=== PATIENT | female | born 1965 | race Two or more races ===

== ENCOUNTER 2017-02-13 07:02 | Day surgery (SDC) | payer OTHER ==
[2017-02-12 15:34] VITALS: BMI 22.2
[~2017-02-13] VITALS: Ht 157.5 cm; Wt 60.0 kg
[2017-02-13 07:57] VITALS: BP 110/66; PULSE 90; RESP 20; Ht 157.5 cm; Wt 60.0 kg
[2017-02-13] MEDS ORDERED: URSO250T10 PO (08:58)
[2017-02-13] MEDS ORDERED: IBUP200C PO (08:58)
[2017-02-13] MEDS ORDERED: SIMV20TA2 PO (08:59)
[2017-02-13] MEDS ORDERED: CHOL4POW3 PO (08:59)
[2017-02-13] MEDS ORDERED: PROPOFOL 20 ML ONE (10:08)
[2017-02-13] MEDS ORDERED: MIDAZOLAM 1 MG/ML 2 ML INJ ONE (10:08)
[2017-02-13] MEDS ORDERED: METOCLOPRAMIDE 10 MG INJ ONE (10:08)
[2017-02-13] MEDS ORDERED: INDOMETHACIN 50 MG SUPP PR ONE ×3 (10:27→10:30)
[2017-02-13] MEDS ORDERED: IOHEXOL 300MG/ML 30 ML BTL ONE (10:30)
[2017-02-13] MEDS ORDERED: FENTAnyl 50 MCG/ML VIAL ONE (10:42)
[2017-02-13] MEDS ORDERED: CEFAZOLIN 1 GM INJ ONE (10:52)
[2017-02-13] MEDS ORDERED: PHENYLephrine (100 MCG/ML) 5ML SYG ONE (10:53)
[2017-02-13] MEDS ORDERED: METOCLOPRAMIDE 10 MG INJ IV PRN (11:00)
[2017-02-13] MEDS ORDERED: MEPERIDINE 25 MG INJ IV PRN (11:00)
[2017-02-13] MEDS ORDERED: HYDROmorphONE (0.2 MG/ML) 10ML SYG IV PRN ×3 (11:00)
[2017-02-13] MEDS ORDERED: DIPHENHYDRAMINE 50 MG INJ IV PRN (11:00)
[2017-02-13] MEDS ORDERED: ONDANSETRON 4 MG INJ IV PRN (11:00)
[2017-02-13] MEDS ORDERED: SUCCINYLCHOLINE CHLORIDE 100 MG/5 ML SYG IV ONE (12:04)
[2017-02-13 12:24] VITALS: BP 119/74; PULSE 91; RESP 18
[2017-02-13 12:25] VITALS: BP 112/70; PULSE 90; RESP 16
[2017-02-13 12:28] VITALS: BP 121/66; PULSE 88; RESP 16
[2017-02-13 12:33] VITALS: BP 114/76; PULSE 82; RESP 20
--- NOTE | 2017-02-13 12:37 | GILP ---
DATE OF PROCEDURE: NAME OF PROCEDURE: ERCP, sphincterotomy, balloon sweep and CBD stent placement. PREOPERATIVE DIAGNOSIS: Patient presenting with a history of abnormal liver functions and abdominal pain. MRCP showed dilatation of the biliary system and at this time the procedure is performed to rule out a distal CBD stricture, CBD stones or neoplasm. POSTOPERATIVE DIAGNOSES: 1. Normal pancreatic duct. 2. Dilated common bile duct. 3. 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 Sphincterotomy was performed, balloon sweep was performed, and a CBD stent was placed. DESCRIPTION OF PROCEDURE: After the informed written consent was obtained, the patient was intubate d by the anesthesiologist, Dr. Solis. When the patient was in the prone position the Olympus v ideo side-viewing duodenoscope was inserted into the oropharynx, then into the esophagus, and then s tomach, and then into the duodenum. The ampulla was located in the normal location, with normal mor phology. Initially the pancreatic duct was cannulated, which appeared normal. Subsequently the com mon bile duct was also cannulated. There seemed to be a stricture in the distal bile duct and at th is time a sphincterotomy was performed. After the sphincterotomy, balloon sweeping was performed. No stones were retrieved. Still appeared to be a distal biliary stricture and at this time a 10 x 7 [place] type of endobiliary prosthesis was inserted into the bile duct, across the ampulla, into the duodenum. At this time the scope was withdrawn and the procedure was terminated. PLAN: Recommend to follow the patient closely. Dictated By: MELISA MANDEL/DECLAN Conf#: [id number] DID#: [id number]
[2017-02-13 13:05] VITALS: BP 126/76; PULSE 77; RESP 16
--- NOTE | 2017-02-13 17:50 | RADRPT ---
PROCEDURE: Intraoperative imaging for ERCP with fluoroscopy. CLINICAL INDICATION: Right upper quadrant pain. Intraoperative. TECHNIQUE: 6 images of the right upper quadrant of the abdomen were obtained in the operating room with an image intensifier. No radiologist was in attendance. 478.7 seconds of fluoroscopy time wa s used. COMPARISON: No prior study is available for comparison. FINDINGS: Images demonstrate the endoscope in position. Contrast was injected into the common bile duct and t he pancreatic duct. Surgical clips are present from previous cholecystectomy. There is no obvious filling defect or stricture. A balloon sweep of the common bile duct was performed. IMPRESSION: 1. ERCP as described above. RPTAT: QQ .Salvatore Angela MD, Date Time Electronically viewed and signed by .Salvatore Angela MD, on 02/13/2017 17:49 .R/
== END 2017-02-13 13:50 | disposition home or self-care (01) ==
LOC: SDS 07:02
PROVIDERS: ATTEND Internal Medicine Gastroenterology
DX: K83.8 Other specified diseases of biliary tract (principal); E78.5 Hyperlipidemia, unspecified
CPT/HCPCS: 47539; 74330; C2617; J0330; J0690; J2250; J2370; J2765; J3010; Q9967; Z7512; Z7610

== ENCOUNTER 2018-01-15 08:59 | Day surgery (SDC) | END 2018-01-15 14:25 | disposition home or self-care (01) ==